=== PATIENT | female | born 1990 | race Caucasian/White ===

== ENCOUNTER 2023-04-01 06:43 | Inpatient (IN) | payer BC, SELFPAY ==
[2023-04-01 06:45] VITALS: BP 146/96; PULSE 81; RESP 16; TEMP 37; O2SAT 99; BMI 19.7
[2023-04-01 07:09] LABS: Basophils % 0.4 %; Eosinophils # 0.3 10^3/uL (0.0-0.8); Eosinophils % 2.8 %; Hematocrit 43.4 % (37.0-47.0); Hemoglobin 14.1 g/dL (11.5-15.3); Lymphocytes # 3.2 10^3/uL (0.8-4.8); Lymphocytes % 31.8 %; Mean Corpuscular HGB Conc 32.5 g/dL (30.0-36.0); Mean Corpuscular Hemoglobin 30.5 pg (28.0-34.0); Mean Corpuscular Volume 93.9 fl (81-99); Mean Platelet Volume 9.5 fL (7.4-10.4); Monocytes # 0.7 10^3/uL (0.2-0.9); Monocytes % 7.3 %; Neutrophils # 5.71 10^3/uL (1.8-7.7); Neutrophils % 57.5 %; Nucleated Red Blood Cells % 0 %; Platelet Count 268 10^3/cmm (130-400); Red Blood Count 4.62 10^6/uL (4.1-5.3); Red Cell Distribution Width 12.4 % (12.1-15.1); White Blood Count 9.9 10^3/uL (4.0-10.0)
[2023-04-01 07:27] LABS: HCG, Serum Qual Negative (Negative)
[2023-04-01 07:47] LABS: Alanine Aminotransferase 15 U/L (0-33); Albumin Level 4.7 g/dL (3.5-5.2); Alkaline Phosphatase 40 U/L (35-105); Anion Gap 14.1 (5-19); Aspartate Amino Transferase 18 U/L (0-32); Blood Urea Nitrogen 10 mg/dL (6-20); Calcium 9.3 mg/dL (8.5-10.5); Carbon Dioxide 26 mmol/L (22-29); Chloride 102 mmol/L (98-107); Globulin 2.4 g/dL (1.3-4.6); Glomerular Filtration Rate 71.3 mL/min (90-130); Glucose 110 mg/dL (65-115); Osmolality Calculated 286 mOsm/kg (285-295); Potassium 4.1 mmol/L (3.5-5.1); Sodium 138 mmol/L (136-145); Total Bilirubin 0.3 mg/dL (0.15-1.2); Total Protein 7.1 g/dL (6.6-8.7)
[2023-04-01 07:52] LABS: Acetaminophen < 5.0 ug/mL (10-30); Alcohol Level < 10 mg/dL (0-10); Salicylate < 0.3 mg/dL (3-10)
[2023-04-01 08:01] LABS: Amphetamines Screen Urine Negative (Negative); Barbiturates Screen Urine Negative (Negative); Benzodiazepines Screen Urine Negative (Negative); Cocaine Screen Urine Negative (Negative); Opiate Screen Urine Negative (Negative); PCP Screen Urine Negative (Negative); THC Screen Urine Positive (Negative)
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
--- NOTE | 2023-04-01 09:24 | PC.NURSE ---
96 hr patient rights discussed and educated with patient in presence of [facility] water resources technical officer Vidal @[phone]. No questions or needs at this time. Patient copy left at bedside
--- NOTE | 2023-04-01 09:26 | PC.NURSE ---
MANCERA found w/in belongings; Patient verbalized to charge nurse that she had a large amount of mancera within her possession and inside her personal belongings. Director Of Education And Training and dog license officer supervisor Vidal counted the mancera that was in patient belongings and verified the amount found with the patient. $630 USD and 340 pesos were found inside her purse tucked inside of her [place] passport. HS asked patient if there was any other mancera within her belongings. She stated no, and agreed to the amount that was found. HS explained that mancera would be locked up, and returned to her at the time of her discharge.
[2023-04-01] MEDS: diphenhydrAMINE 50 mg Capsule PO ×2 (11:19→17:00)
--- NOTE | 2023-04-01 12:34 | PC.NURSE ---
PT REQUESTS TO FILE A COMPLAINT AND SPEAK TO A SAND MILL OPERATOR DUE TO THE U LUNCH SCHEDULE BEING WRONG ON YOUR SCHEDULE. THIS RN REVIEWED THE SCHEDULE AND LUNCH IS SCHEDULED AT NOON, PT WAS INFORMED LUNCH GETS ON THE UNIT APPROXIMATELY 1230 TO 1300. THIS MADE THE PT EXTREMELY UPSET. THIS RN DID AGREE WITH THE PT THAT THE SCHEDULE WAS IN FACT WRONG AND THANKED HER FOR BRINGING IT TO OUT ATTENTION. 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 I NEED TO TALK TO SOMEONE WHO KNOW WHAT THEY ARE DOING PLEASE. MAYBE THIS CARY. THIS RN ATTEMPTED TO ANSWER QUESTIONS BUT PT WAS SO WORKED UP AND AGITATED SHE WOULD NOT LISTEN. PT WAS OFFERED MEDICATION OR A QUIET PLACE TO GO TALK INTO HER ROOM, PT REFUSED. PT STATES NO, IF THERE ARE NOT CAMERAS IN THE ROOM I AM NOT SPEAKING TO YOU. I NEED TO BE ON CAMERA BEFORE I SPEAK TO YOU. THIS RN SUGGESTED WE SPEAK AT THE NURSES STATION SINCE THERE IS A CAMERA OVER HEAD. PT THEN STATES WHAT HERE THERE IS NO PRIVACY, YOU JUST WANT ME TO TALK TO ME HERE SO I DON'T HAVE PRIVACY. IT WAS THEN SUGGESTED SHE PICK WHERE WE SPEAK AT. PT SUGGESTED WE GO INTO THE DAY AREA. THIS RN INFORMED THE PT THAT A GROUP WAS GOING ON AND IT PROBABLY WOULD NOT BE VERY PRIVATE. PT THEN POINTED TO THE SCHEDULE AND SAID SEE IT SAYS ON THE SCHEDULE THE GROUP IS AT 100 AND NOW ITS 1200 AND SHES IN THERE DOING GROUP. PT WAS INFORMED THAT THE ARCHERY INSTRUCTOR CAN DO GROUPS AT ANYTIME A PT SHOW INTEREST WEATHER IT IS SCHEDULED OR NOT. THIS AGAIN UPSET THE PT GREATLY AND SHE BEGAN SPEAKING IN A RAISED VOICE REQUESTED TO SPEAK TO THE HIGHEST PERSON AVAILABLE OVER YOU. PT WAS INFORMED THAT THE SUPERVISOR PIPE FINISHING WOULD BE NOTIFIED TO SPEAK TO HER. PT BEGAN YELLING AGAIN WHEN RN INFORMED THAT SINCE SHE WAS SO UPSET WE WOULD STOP SPEAKING UNTIL SHE COULD BE CALM. PT STATED FINE JUST TELL CARY, I'M SURE SHES ON LUNCH. THEN PT LAUGHED IN A SARCASTIC MANNER. THIS RN THEN WENT AND INFORMED THE SUPERVISOR PIPE FINISHING OF ALL THE ABOVE AND SUPERVISOR PIPE FINISHING WENT TO SPEAK WITH PT SHORTLY AFTER.
[2023-04-01 14:00] VITALS: BP 116/75; PULSE 79; RESP 18; TEMP 36.9; O2SAT 98
--- NOTE | 2023-04-01 14:19 | PC.NURSE ---
PT WAS MOVED TO 170 DUE TO BEING EXTREMELY AGITATED AND CONFRONTATIONAL TOWARDS STAFF WELL UPSETTING OTHER PTS. PT WAS INFORMED OF BEING MOVED AND EXPLAINED IN GREAT DETAIL WHY SHE WAS BEING MOVED. PT IS STILL EXTREMELY UPSET AND REFUSES TO LISTEN TO STAFF WHEN THEY ANSWER HER QUESTIONS. PT WAS MOVED TO 170 WITHOUT ANY ISSUES. PT DID SPEAK TO THE MACHINE III COREMAKER BUT IS STILL COMING TO THE NURSES STATION QUESTIONING EVERYTHING THAT IS DONE OR SAID. SUPPORT IS VOICED.
[2023-04-01 14:25] VITALS: PULSE 57
--- NOTE | 2023-04-01 14:25 | ECG_ITS ---
[facility] Test Date: 2023-04-01 Pat Name: Kimberly Gilbert Department: Room: 170 Gender: Female Certified Technician: : [id number] Requested By: Francis Larsen Order Number: [id number] Vince MD: Pasquale Ross M.D. Measurements Intervals [place] Rate: 57 P: 51 HI: 122 QRS: 79 QRSD: 86 T: 60 QT: 387 QTc: 377 Interpretive Statements SINUS BRADYCARDIA No previous ECG available for comparison Electronically Signed On 04-01-2023 14:45:42 CDT by Pasquale Ross M.D. [email or web address] [email or web address] central regional medical centerIronPlanetuniversity hospitals [facility].[id number]
--- NOTE | 2023-04-01 14:26 | PC.NURSE ---
Patient belittling staff and claiming that none of the staff know how to do their job and that all of the patients are being neglected. Patient stated to this nurse, why do you give this side good snacks and not the other side? Why aren't all patients being treated the same? This nurse assured her the staff was giving all patients fair treatment and appropriate snacks. She then demanded she see a medical doctor for her heart condition and said, since they didn't even address it in the ER. This RN told her the doctor would be made aware of her requests and patient became angry that a doctor was not going to see her at this very minute. Nursing staff voiced support and concern for the patient, but the patient was not responsive of this. She continued to berate staff.
--- NOTE | 2023-04-01 14:35 | PC.NURSE ---
Edda Rendon RN came to the unit to give patient her lab results per patient request.
--- NOTE | 2023-04-01 14:49 | PC.NURSE ---
Stat EKG ordered due to patient complaint of chest pain. Vitals were taken and were as follow: blood pressure- 116/75, pulse rate-79, respirations-18, o2-98, and temp of 98.5. Bedside, 12-lead EKG was administered shortly after to patient and no concerns were raised. Pulse rate was 57 and patient was deemed to be sinus bradycardia without any remarkable findings.
--- NOTE | 2023-04-01 15:01 | PC.NURSE ---
PTS MEDICATIONS WERE VERIFIED THROUGH 3 DIFFERENT PHARMACIES. THE FIRST PHARMACY IS [facility] IN [place], [place], PT HAS PICKED UP THE FOLLOWING MEDICATIONS IN THE LAST 30 DAYS AND HAS ACTIVE PRESCRIPTIONS FOR THE FOLLOWING: GABAPENTIN 300 MG PO BID, LORATADINE 10 MG PO DAILY, TRIAMCINOLONE 1% CREAM APPLY TO TRUNK AD BILATERAL EXTREMITIES BID PRN. PT ALSO HAD A PRESCRIPTION FOR GABAPENTIN 100 MG PO BID, WHEN THIS RN WENT TO EDUCATE PT ON ALL NEW ORDERS AND PRESCRIPTIONS PT STATED THAT THE 300 MG OF GABAPENTIN WAS TOO MUCH SINCE SHE IS NOT HOOKED TO CONTINUOS CARDIAC MONITORING. INFORMED PT I WOULD NOTIFY DR. HORTON TO SEE IF ORDER COULD BE CHANGED TO TO 100 MG. THE FOLLOWING MEDICATIONS WERE RECEIVED FROM [facility] IN [place], [place]: ATOMEXATINE 40 MG PO DAILY, LAMOTRIGINE 100 MG PO DAILY, SEROQUEL 25 MG PO AT BEDTIME, ALBUTEROL 90 MCGS 1 INHALATION Q 6 HOURS SOB. STILL WAITING FOR [facility] IN [place], [place] TO FAX MEDICATIONS. NEW ORDERS WERE RECEIVED TO START THE ABOVE HOME MEDICATIONS.
--- NOTE | 2023-04-01 15:24 | PC.NURSE ---
GABAPENTIN 300 MG DISCONTINUED AND STARTED GABAPENTIN [address] PO [address]ID PER [address] HORTON. PT EDUCATION COMPLETED ON ALL HOME MEDICATION BEING RESTARTED WITH THE EXCEPTION OF BENADRYL DUE TO IT BEING DUPLICATE THERAPY. PT IS RESTING IN BED AND MORE COOPERATIVE THAN SHE HAS BEEN ALL DAY. ALL QUESTIONS WERE ANSWERED AND SUPPORT WAS VOICED. PT THEN ROLLED OVER AND BEGAN TO REST AGAIN. CALM AND COOPERATIVE. PT STATES THE NURSE GAVE HER SOME BENADRYL AND IT HAS BEEN EFFECTIVE IN CALMING HER.
[2023-04-01] MEDS: famotidine 20 mg Tablet PO (16:24)
[2023-04-01] MEDS: gabapentin 100 mg Capsule PO (16:24)
--- NOTE | 2023-04-01 16:31 | PC.NURSE ---
Patient at nurses station, agitated. Patient complaining about how her clothes fit. Patient complaining about her shower door not having a lock. Patient upset that the doctor is not here. Patient says she won't take anything to calm down because she does not want to calm down. Patient yelled this last sentence. Patient states that she wants to talk to a marketing information analyst.
--- NOTE | 2023-04-01 16:57 | PC.NURSE ---
Patient banging on hankins in patient bathroom. Patient verbally aggressive. Patient screaming at staff. Administered oral B52 with Security present. Will continue to monitor patient closely
[2023-04-01] MEDS: LORazepam 2 mg Tablet PO (17:00)
[2023-04-01] MEDS: haloperidol 5 mg Tablet PO (17:00)
--- NOTE | 2023-04-01 17:02 | PC.NURSE ---
Patient banging on hankins in bathroom and threw all hygiene supplies, because she was angry, in the floor while taking a shower. Staff attempted to deescalate patient verbally but were unsuccessful. This RN asked if she would like new hygiene supplies to which she replied, who the fuck am I even talking to, as she in the bathroom with the door closed. When this RN told her she stated, I wish I never fucking met you guys. Nobody knows what the fuck they're doing. Patient was then offered something PO for agitation, but she refused and stated she didn't want to calm down. This RN and a member of security attempted to get patient to comply and take medications, but she continued to refuse. Once nurses had drawn up haldol, benadryl, and ativan in syringes to administer to the patient, she began to cry and asked if she could take them in pill form. The patient was then administered ativan 2mg po, haldol 5mg po, and benadryl 50mg po. Patient currently calm and resting in her room.
[2023-04-01] MEDS: quetiapine 25 mg Tablet PO (21:05)
[2023-04-01 21:37] VITALS: BP 110/66; PULSE 89; RESP 17; O2SAT 98
[2023-04-02 06:00] VITALS: RESP 15
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
[2023-04-02] MEDS: lamoTRIgine 100 mg Tablet PO (09:31)
[2023-04-02] MEDS: gabapentin 100 mg Capsule PO ×2 (09:31→17:25)
[2023-04-02] MEDS: atomoxetine 40 mg Capsule PO (09:31)
[2023-04-02] MEDS: loratadine 10 mg Tablet PO (09:32)
[2023-04-02] MEDS: famotidine 20 mg Tablet PO ×2 (09:32→17:25)
[2023-04-02] MEDS: benztropine 1 mg Tablet PO (09:32)
[2023-04-02 14:00] VITALS: BP 103/69; PULSE 102; RESP 16; TEMP 36.6; O2SAT 99
[2023-04-02 20:17] VITALS: BP 118/76; PULSE 66; RESP 18; TEMP 36.5; O2SAT 99
[2023-04-02] MEDS: quetiapine 25 mg Tablet PO (20:38)
[2023-04-03 06:00] VITALS: BP 108/73; PULSE 77; RESP 16; TEMP 36.9; O2SAT 98
[2023-04-03] MEDS: famotidine 20 mg Tablet PO ×2 (08:41→17:43)
[2023-04-03] MEDS: loratadine 10 mg Tablet PO (08:41)
[2023-04-03] MEDS: gabapentin 100 mg Capsule PO ×2 (08:41→17:43)
[2023-04-03] MEDS: lamoTRIgine 100 mg Tablet PO (08:41)
[2023-04-03] MEDS: atomoxetine 40 mg Capsule PO (08:41)
[2023-04-03] MEDS: polyethylene glycol 3350 Pkt 17 gm PO (10:04)
[2023-04-03 14:00] VITALS: BP 118/53; PULSE 71; RESP 16; TEMP 36.8; O2SAT 99
[2023-04-03] MEDS: zinc oxide oint 30 gm 1 APPLIC TOPICAL (16:56)
[2023-04-03] MEDS: diphenhydrAMINE 50 mg Capsule PO (17:47)
--- NOTE | 2023-04-03 18:12 | W.PM.NPUPNS ---
Subjective NPU Subjective: Patient presented today reporting that she is feeling a little better but struggling with being here. She talks a lot about her children and not being with them. We talked a lot about the need for her to take this time to care for herself and get psychological stability. She talked a lot about trauma and not being able to relax. We talked about collateral information being very suggestive of this representing psychosis and the need for medications to help thwart that thinking. We discussed the risks, benefits and alternatives of starting Invega and she understood and agreed to proceed as is documented in this note. Mental Status Exam MSE Comments: This is an underweight white female, in hospital scrubs, with appropriate grooming and eye contact. No abnormal movements except for mild psychomotor retardation. Cooperative with exam in mild distress. Speech was normal rate and volume. Mood described as is really hard to be here I feel trapped or caged; affect congruent, labile at times but much more calm but the first day. Thought process, organized. Thought content: patient denied any suicidal or homicidal ideation, there were no delusions reported but concerns for paranoia, hyperreligious or persecutory noted, patient denied any auditory or visual hallucinations. Attention, concentration, and memory appeared intact, but none were formally tested. Alert and oriented times three. Insight and judgment are limited. Impulse control is limited. Vitals/I&O/Wt Last Vital Signs Temp 98.5 F 04/03/23 21:58 Pulse 73 04/03/23 21:58 Resp 18 04/03/23 21:58 BP 135/82 04/03/23 21:58 Pulse Ox 99 04/03/23 21:58 O2 Del Method Room Air 04/03/23 21:58 Data NPU 04/01/23 07:00 04/01/23 07:00 A&P Assessment and plan (1) Psychosis: Plan This is a 33 -year-old, white female, history of mental health issues that she is somewhat guarded in revealing who presents after being placed on a 96-hour hold secondary to concerns for paranoia, psychosis and/or alexy. 1.? Continue current medication. Start Invega 3 mg p.o. daily today with a likely plan to switch to 6 mg tomorrow. 2.? Encourage individual, group, and milieu therapy. 3.? Continue q-15-minute checks for safety. 4.? Recommend sober living treatment at the highest level of care to which the patient is willing to commit. 5. Get collateral information given her subtlety and her psychosis as well as concerns she is avoiding being totally honest secondary to insight into the implication of her reports of the world ending etc. some collateral information obtained suggestive of clear demarcation suggestive of psychotic break in the last month. Involuntary Hold Information 96 Hour Hold: 96 Hour Involuntary Admission: Yes 96 Hour Hold Ending Date: 04/07/23 96 Hour Hold Ending Time: 08:15 Attestations NPU Medical Necessity Statement*: Inpatient hospitalization is medically necessary and the clinically appropriate intervention, at this time. We will monitor medications and make changes as indicated. Likely length of stay is three to five days. Coding Level of Care Code Acute Code for [place] Fwd Diagnoses Psychosis F29
[2023-04-03] MEDS: paliperidone ER 3 mg Tablet PO (19:58)
[2023-04-03 21:58] VITALS: BP 135/82; PULSE 73; RESP 18; TEMP 36.9; O2SAT 99
--- NOTE | 2023-04-04 02:21 | PC.NURSE ---
Pt 2100 seroquel wasted. Pt refused to take it when given to her and stated I dont want to go to sleep right now, I will come back up later when I feel like taking it. Pt was later asked again around two hours later if she wanted to take it and pt stated Why would I take it now? .
[2023-04-04 06:00] VITALS: BP 102/67; PULSE 70; RESP 16; O2SAT 98
[2023-04-04] MEDS: lamoTRIgine 100 mg Tablet PO (09:08)
[2023-04-04] MEDS: paliperidone ER 3 mg Tablet PO (09:08)
[2023-04-04] MEDS: loratadine 10 mg Tablet PO (09:08)
[2023-04-04] MEDS: gabapentin 100 mg Capsule PO ×2 (09:08→17:31)
[2023-04-04] MEDS: atomoxetine 40 mg Capsule PO (09:08)
[2023-04-04] MEDS: famotidine 20 mg Tablet PO ×2 (09:08→17:31)
--- NOTE | 2023-04-04 11:47 | P.NPUPN_ITS ---
Subjective NPU Subjective: Patient presented today reporting that she is feeling okay. She is still fairly resistant to talking about some of the thoughts that she has including the end of the world and different things about people with recessive genes. She spent much of the interview thought about how the blue-eyed people around people on the inpatient unit had these differences and sometimes feeling to be more s cheming against her. Otherwise she was less agitated or irritable than when she first presented and seem to adjusting to being here though she isbe still resistant to the idea that she is having challenges at the level that she is having them. Mental Status Exam MSE Comments: This is an underweight white female, in hospital scrubs, with appropriate grooming and eye contact. No abnormal movements except for mild psychomotor retardation. Cooperative with exam in mild distress. Speech was normal rate and volume. Mood described as is really hard to be here I feel trapped or caged; affect congruent, labile at times but much more calm but the first day. Thought process, organized. Thought content: patient denied any suicidal or homicidal ideation, there were no delusions reported but concerns for paranoia, hyperreligious or persecutory noted, patient denied any auditory or visual hallucinations. Attention, concentration, and memory appeared intact, but none were formally tested. Alert and oriented times three. Insight and judgment are limited. Impulse control is limited. Vitals/I&O/Wt Last Vital Signs Temp 98.5 F 04/03/23 21:58 Pulse 70 04/04/23 06:00 Resp 16 04/04/23 06:00 BP 102/67 04/04/23 06:00 Pulse Ox 98 04/04/23 06:00 O2 Del Method Room Air 04/04/23 06:00 Data NPU 04/01/23 07:00 04/01/23 07:00 A&P Assessment and plan (1) Psychosis: Plan This is a 33 -year-old, white female, history of mental health issues that she is somewhat guarded in revealing who presents after being placed on a 96-hour hold secondary to concerns for paranoia, psychosis and/or alexy. 1.? Continue current medication. Started Invega 3 mg p.o. daily today with a likely plan to switch to 6 mg. 2.? Encourage individual, group, and milieu therapy. 3.? Continue q-15-minute checks for safety. 4.? Recommend sober living treatment at the highest level of care to which the patient is willing to commit. 5. Get collateral information given her subtlety and her psychosis as well as concerns she is avoiding being totally honest secondary to insight into the implication of her reports of the world ending etc. some collateral information obtained suggestive of clear demarcation suggestive of psychotic break in the last month. Involuntary Hold Information 96 Hour Hold: 96 Hour Involuntary Admission: Yes 96 Hour Hold Ending Date: 04/07/23 96 Hour Hold Ending Time: 08:15 Attestations NPU Medical Necessity Statement*: Inpatient hospitalization is medically necessary and the clinically appropriate intervention, at this time. We will monitor medications and make changes as indicated. Likely length of stay is three to five days. Coding Level of Care Code Acute Code for Chg Fwd Diagnoses Psychosis F29
[2023-04-04 14:00] VITALS: BP 128/74; PULSE 84; RESP 16; TEMP 36.6; O2SAT 99
[2023-04-04] MEDS: docusate sodium 100 mg Capsule PO (16:45)
[2023-04-04] MEDS: diphenhydrAMINE 50 mg Capsule PO (18:30)
[2023-04-04] MEDS: quetiapine 25 mg Tablet PO (21:25)
[2023-04-04 21:43] VITALS: BP 109/62; PULSE 79; RESP 18; TEMP 37; O2SAT 97
[2023-04-05 06:00] VITALS: RESP 16
[2023-04-05] MEDS: lamoTRIgine 100 mg Tablet PO (09:41)
[2023-04-05] MEDS: atomoxetine 40 mg Capsule PO (09:41)
[2023-04-05] MEDS: gabapentin 100 mg Capsule PO ×2 (09:41→17:26)
[2023-04-05] MEDS: loratadine 10 mg Tablet PO (09:41)
[2023-04-05] MEDS: paliperidone ER 3 mg Tablet PO (09:42)
[2023-04-05] MEDS: famotidine 20 mg Tablet PO ×2 (09:42→17:26)
[2023-04-05 14:00] VITALS: BP 128/79; PULSE 96; RESP 17; TEMP 36.6; O2SAT 98
[2023-04-05] MEDS: polyethylene glycol 3350 Pkt 17 gm PO (15:05)
--- NOTE | 2023-04-05 18:56 | P.NPUPN_ITS ---
Subjective NPU Subjective: Patient presented today reporting that she is doing fine. She continues to complain/does not want to be in the hospital and is hopeful for discharge soon and does not feel that she is having significant psychosis. Family and friends have expressed significant concerns and she reports that her aunt who she was going to see is coming tomorrow which might be a helpful source of data. She childers s some sadness about school starting tomorrow and her not being there for her children but she reports that she is making it. Mental Status Exam 2 MSE Comments: This is an underweight white female, in hospital scrubs, with appropriate grooming and eye contact. No abnormal movements. Cooperative with exam in mild distress. Speech was normal rate and volume. Mood described as is really hard to be here I feel trapped or caged; affect congruent. Thought process, organized. Thought content: patient denied any suicidal or homicidal ideation, there were no delusions reported but concerns for paranoia, hyperreligious or persecutory delusions noted, patient denied any auditory or visual hallucinations. Attention and concentration appeared intact, and memory appeared mostly reliable concerns about delusions impacting her reporting, but none were formally tested. Alert and oriented times three. Insight and judgment are limited. Impulse control is limited. Vitals/I&O/Wt Last Vital Signs Temp 98.7 F 04/05/23 20:47 Pulse 84 04/05/23 20:47 Resp 18 04/05/23 20:47 BP 108/66 04/05/23 20:47 Pulse Ox 97 04/05/23 20:47 O2 Del Method Room Air 04/05/23 20:47 Weight last 48 hrs Weight 52.617 kg Data NPU 04/01/23 07:00 04/01/23 07:00 A&P Assessment and plan (1) Psychosis: Plan This is a 33 -year-old, white female, history of mental health issues that she is somewhat guarded in revealing who presents after being placed on a 96-hour hold secondary to concerns for paranoia, psychosis and/or alexy. 1.? Continue current medication. Started Invega 3 mg p.o. daily today with a likely plan to switch to 6 mg. 2.? Encourage individual, group, and milieu therapy. 3.? Continue q-15-minute checks for safety. 4.? Recommend sober living treatment at the highest level of care to which the patient is willing to commit. 5. Get collateral information given her subtlety and her psychosis as well as concerns she is avoiding being totally honest secondary to insight into the implication of her reports of the world ending etc. some collateral information obtained suggestive of clear demarcation suggestive of psychotic break in the last month. 6. Need to determine whether we will file for 21-day hold. Involuntary Hold Information 96 Hour Hold: 96 Hour Involuntary Admission: Yes 96 Hour Hold Ending Date: 04/07/23 96 Hour Hold Ending Time: 08:15 Attestations NPU Medical Necessity Statement*: Inpatient hospitalization is medically necessary and the clinically appropriate intervention, at this time. We will monitor medications and make changes as ind icated. Likely length of stay is three to five days. Coding Level of Care Code Acute Code for Chg Fwd Diagnoses Psychosis F29
[2023-04-05] MEDS: quetiapine 25 mg Tablet PO (20:31)
[2023-04-05 20:47] VITALS: BP 108/66; PULSE 84; RESP 18; TEMP 37.1; O2SAT 97
[2023-04-05] MEDS: docusate sodium 100 mg Capsule PO (20:51)
[2023-04-05] MEDS: diphenhydrAMINE 50 mg Capsule PO (21:48)
[2023-04-06] MEDS: loratadine 10 mg Tablet PO (08:40)
[2023-04-06] MEDS: lamoTRIgine 100 mg Tablet PO (08:40)
[2023-04-06] MEDS: famotidine 20 mg Tablet PO ×2 (08:40→18:29)
[2023-04-06] MEDS: gabapentin 100 mg Capsule PO ×2 (08:40→18:29)
[2023-04-06] MEDS: atomoxetine 40 mg Capsule PO (08:40)
[2023-04-06] MEDS: paliperidone ER 6 mg Tablet PO (08:42)
[2023-04-06] MEDS: polyethylene glycol 3350 Pkt 17 gm PO (12:55)
[2023-04-06 14:00] VITALS: BP 108/72; PULSE 96; RESP 17; TEMP 36.8; O2SAT 98
--- NOTE | 2023-04-06 16:51 | W.PM.NPUPNS ---
Subjective NPU Subjective: Patient presented today reporting that she is doing fine and is really focused on her medical concerns and almost obsessive compulsive fashion. Family meeting was fairly adversarial with her more or less same she was getting help here and that she should just be transferred and trying to look at technicalities they can lead to her discharge. She was very limited in her insight somewhat but ultimately acknowledged that she had not under selling the level of delusions that she has. She reported being agreeable to staying at least 5 more days. We were negotiating whether we would still move forward with a hearing. Mental Status Exam MSE Comments: This is an underweight white female, in hospital scrubs, with appropriate grooming and eye contact. No abnormal movements. Cooperative with exam in mild to extreme distress. Speech was normal rate and volume. Mood described as is really hard to be here I feel trapped or caged; affect congruent. Thought process, organized. Thought content: patient denied any suicidal or homicidal ideation, there were no delusions reported but concerns for paranoia, hyperreligious or persecutory delusions noted, patient denied any auditory or visual hallucinations. Attention and concentration appeared intact, and memory appeared mostly reliable concerns about delusions impacting her reporting, but none were formally tested. Alert and oriented times three. Insight and judgment are limited. Impulse control is limited. Vitals/I&O/Wt Last Vital Signs Temp 98.7 F 04/05/23 20:47 Pulse 84 04/05/23 20:47 Resp 18 04/05/23 20:47 BP 108/66 04/05/23 20:47 Pulse Ox 97 04/05/23 20:47 O2 Del Method Room Air 04/05/23 20:47 Weight last 48 hrs Weight 52.617 kg Data NPU 04/01/23 07:00 04/01/23 07:00 A&P Assessment and plan (1) Psychosis: Plan This is a 33 -year-old, white female, history of mental health issues that she is somewhat guarded in revealing who presents after being placed on a 96-hour hold secondary to concerns for paranoia, psychosis and/or alexy. 1.? Continue current medication. Started Invega 3 mg p.o. daily today with a likely plan to switch to 6 mg. 2.? Encourage individual, group, and milieu therapy. 3.? Continue q-15-minute checks for safety. 4.? Recommend sober living treatment at the highest level of care to which the patient is willing to commit. 5. Get collateral information given her subtlety and her psychosis as well as concerns she is avoiding being totally honest secondary to insight into the implication of her reports of the world ending etc. some collateral information obtained suggestive of clear demarcation suggestive of psychotic break in the last month. Had family meeting with aunt who was supportive of our position that she needed more time patient initially lobby for discharge and was quite resistant. Eventually in the conversation afterwards she was able to collaborate with this commercial insurance underwriter on a plan for a longer stay with the goal of avoiding her missing an appointment on 04/14/2023. 6. File for 21-day hold. Involuntary Hold Information 96 Hour Hold: 96 Hour Involuntary Admission: Yes 96 Hour Hold Ending Date: 04/07/23 96 Hour Hold Ending Time: 08:15 Attestations NPU Medical Necessity Statement*: Inpatient hospitalization is medically necessary and the clinically appropriate intervention, at this time. We will monitor medications and make changes as indicated. Likely length of stay is three to five days. Coding Level of Care Code Acute Code for Chg Fwd Diagnoses Psychosis F29
[2023-04-06 20:17] VITALS: BP 135/83; PULSE 82; RESP 18; TEMP 37.2; O2SAT 97
[2023-04-06] MEDS: quetiapine 25 mg Tablet PO (20:17)
[2023-04-06 20:18] VITALS: BP 112/77
[2023-04-06] MEDS: docusate sodium 100 mg Capsule PO (20:44)
[2023-04-07 05:46] VITALS: BP 108/65; PULSE 68; RESP 18; O2SAT 98
[2023-04-07] MEDS: paliperidone ER 6 mg Tablet PO (09:50)
[2023-04-07] MEDS: loratadine 10 mg Tablet PO (09:51)
[2023-04-07] MEDS: atomoxetine 40 mg Capsule PO (09:51)
[2023-04-07] MEDS: lamoTRIgine 100 mg Tablet PO (09:51)
[2023-04-07] MEDS: gabapentin 100 mg Capsule PO ×2 (09:51→17:38)
[2023-04-07] MEDS: famotidine 20 mg Tablet PO ×2 (09:51→17:38)
[2023-04-07 14:00] VITALS: BP 153/101; PULSE 78; RESP 18; TEMP 36.6; O2SAT 98
[2023-04-07] MEDS: docusate sodium 100 mg Capsule PO (14:44)
[2023-04-07] MEDS: tamsulosin 0.4 mg Capsule PO (17:38)
[2023-04-07 18:13] LABS: Add Urine Microscopic? NO; Charge for UA Resulting for Rev
--- NOTE | 2023-04-07 18:16 | P.NPUPN_ITS ---
Subjective NPU Subjective: Patient presents today continuing to have slow improvement. Today she was able to acknowledge that much of the conversation we have had including thoughts about her brother going to [place], funguses taking over the world are fixated in delusions that she has an represent psychosis and we continue to argue for her to embrace additional days. She has been recently challenged by significant s omatic focus about medical conditions she believes she has including cardiac, thought she had about being , kidney issue, skin issues, EDS etc. Mental Status Exam MSE Comments: This is an underweight white female, in hospital scrubs, with appropriate grooming and eye contact. No abnormal movements. Cooperative with exam in mild to extreme distress. Speech was normal rate and volume. Mood described as is really hard to be here I feel trapped or caged; affect congruent. Thought process, organized. Thought content: patient denied any suicidal or homicidal ideation, she is finally acknowledging some of the delusions he has reported and continued paranoia, hyperreligious or persecutory delusions noted, patient denied any auditory or visual hallucinations. Attention and concentration appear ed intact, and memory appeared mostly reliable concerns about delusions impacting her reporting, but none were formally tested. Alert and oriented times three. Insight and judgment are limited versus impaired. Impulse control is limited versus impaired. Vitals/I&O/Wt Last Vital Signs Temp 97.8 F 04/07/23 14:00 Pulse 85 04/07/23 22:00 Resp 18 04/07/23 22:00 BP 125/77 04/07/23 22:00 Pulse Ox 97 04/07/23 22:00 O2 Del Method Room Air 04/07/23 22:00 Data NPU 04/07/23 20:03 04/07/23 20:03 A&P Assessment and plan (1) Psychosis: Plan This is a 33 -year-old, white female, history of mental health issues that she is somewhat guarded in revealing who presents after being placed on a 96-hour hold secondary to concerns for paranoia, psychosis and/or alexy. 1.? Continue current medication. Started Invega 3 mg p.o. daily. Increased to 04/06/2023 6 mg. 2.? Encourage individual, group, and milieu therapy. 3.? Continue q-15-minute checks for safety. 4.? Recommend sober living treatment at the highest level of care to which the patient is willing to commit. 5. Get collateral information given her subtlety and her psychosis as well as concerns she is avoiding being totally honest secondary to insight into the implication of her reports of the world ending etc. some collateral information obtained suggestive of clear demarcation suggestive of psychotic break in the last month. Had family meeting with aunt who was supportive of our position that she needed more time patient initially lobby for discharge and was quite resistant. Eventually in the conversation afterwards she was able to collaborate with this writer technical publications on a plan for a longer stay with the goal of avoiding her missing an appointment on 04/14/2023. 6. Filed for 21-day hold. Hearing tomorrow 04/08/2023. Involuntary Hold Information 96 Hour Hold: 96 Hour Involuntary Admission: Yes 96 Hour Hold Ending Date: 04/07/23 96 Hour Hold Ending Time: 08:15 Attestations NPU Medical Necessity Statement*: Inpatient hospitalization is medically necessary and the clinically appropriate intervention, at this time. We will monitor medications and make changes as indicated. Likely length of stay is three to five days. Coding Level of Care Code Acute Code for Chg Fwd Diagnoses Psychosis F29
[2023-04-07 18:20] LABS: Bilirubin Urine Neg (Negative); Blood Urine Neg (Negative); Glucose Urine UA Norm (Normal); Ketones Urine Negative (Negative); Leukocyte Esterase Urine Negative (Negative); Nitrate Urine Negative (Negative); Protein Urine Neg (Negative); Specific Gravity, Urine 1.005 (1.005-1.030); Urine Appearance Clear (CLEAR); Urine Color Yellow (Yellow); Urobilinogen Urine Norm (Negative); pH Urine 7 (5-7)
--- NOTE | 2023-04-07 19:09 | PC.NURSE ---
Performed bladder scan 367ml residual.
[2023-04-07 20:28] LABS: Basophils % 0.4 %; Eosinophils # 0.3 10^3/uL (0.0-0.8); Eosinophils % 3.2 %; Hematocrit 39.5 % (36-47); Lymphocytes # 3.8 10^3/uL (0.8-4.8); Lymphocytes % 38.7 %; Mean Corpuscular HGB Conc 33.2 g/dL (30-55); Mean Corpuscular Hemoglobin 30.4 pg (27-33); Mean Corpuscular Volume 91.6 fl (85-98); Mean Platelet Volume 9.9 fL (7.4-10.4); Monocytes # 0.7 10^3/uL (0.2-0.9); Neutrophils # 4.88 10^3/uL (1.8-7.7); Neutrophils % 50.5 %; Nucleated Red Blood Cells % 0 %; Platelet Count 210 10^3/cmm (157-399); Red Blood Count 4.31 10^6/uL (3.85-5.65); Red Cell Distribution Width 12.6 % (12.1-15.1); White Blood Count 9.68 10^3/uL (3.29-11.43)
[2023-04-07 20:54] LABS: Alanine Aminotransferase 17 U/L (0-33); Albumin Level 4.5 g/dL (3.5-5.2); Alkaline Phosphatase 54 U/L (35-105); Anion Gap 11.3 (5-19); Aspartate Amino Transferase 16 U/L (0-32); Blood Urea Nitrogen 19 mg/dL (6-20); Calcium 9.4 mg/dL (8.5-10.5); Carbon Dioxide 29 mmol/L (22-29); Chloride 103 mmol/L (98-107); Globulin 2.3 g/dL (1.3-4.6); Glomerular Filtration Rate 81.6 mL/min (90-130); Glucose 93 mg/dL (65-115); Osmolality Calculated 290 mOsm/kg (285-295); Potassium 4.3 mmol/L (3.5-5.1); Sodium 139 mmol/L (136-145); Total Bilirubin 0.2 mg/dL (0.15-1.2); Total Protein 6.8 g/dL (6.6-8.7)
[2023-04-07] MEDS: quetiapine 25 mg Tablet PO (21:06)
[2023-04-07 22:00] VITALS: BP 125/77; PULSE 85; RESP 18; O2SAT 97
[2023-04-08 06:00] VITALS: BP 110/75; PULSE 101; RESP 18; O2SAT 99
[2023-04-08] MEDS: paliperidone ER 6 mg Tablet PO (09:38)
[2023-04-08] MEDS: loratadine 10 mg Tablet PO (09:38)
[2023-04-08] MEDS: famotidine 20 mg Tablet PO ×2 (09:38→17:13)
[2023-04-08] MEDS: gabapentin 100 mg Capsule PO ×2 (09:38→17:13)
[2023-04-08] MEDS: atomoxetine 40 mg Capsule PO (09:38)
[2023-04-08] MEDS: lamoTRIgine 100 mg Tablet PO (09:38)
--- NOTE | 2023-04-08 13:53 | P.NPUPN_ITS ---
Subjective NPU Subjective: Patient presented today reporting she feels she is ready to leave. We discussed that it was only yesterday that she was able to even acknowledge some of her delusional content. She had a very intellectualized concept of her situation and would not look at the red flags about her being weeks into this episode and only being days with improvement. She was unable to look at the challenges she has created including her having supervised visits with her children and having significant custody restrictions. She continues to be consumed by thoughts of her possible illnesses of being very somatically preoccupied. I discussed the plan to go to the court house and request up to 21 days additional. Mental Status Exam MSE Comments: This is an underweight white female, in hospital scrubs, with appropriate grooming and eye contact. No abnormal movements. Cooperative with exam in mild to extreme distress. Speech was normal rate and volume. Mood described as is really hard to be here I feel trapped or caged; affect congruent. Thought process, organized. Thought content: patient denied any suicidal or homicidal ideation, she is finally acknowledging some of the delusions he has reported and continued paranoia, hyperreligious or persecutory delusions noted, patient denied any auditory or visual hallucinations. Attention and concentration appeared intact, and memory appeared mostly reliable concerns about delusions impacting her reporting, but none were formally tested. Alert and oriented times three. Insight and judgment are limited versus impaired. Impulse control is limited versus impaired. Vitals/I&O/Wt Last Vital Signs Temp 99.3 F 04/08/23 14:00 Pulse 87 04/08/23 20:40 Resp 18 04/08/23 20:40 BP 134/79 04/08/23 20:40 Pulse Ox 98 04/08/23 20:40 O2 Del Method Room Air 04/08/23 20:40 Data NPU 04/07/23 20:03 04/07/23 20:03 A&P Assessment and plan (1) Psychosis: Plan This is a 33 -year-old, white female, history of mental health issues that she is somewhat guarded in revealing who presents after being placed on a 96-hour hold secondary to concerns for paranoia, psychosis and/or alexy. 1.? Continue current medication. Started Invega 3 mg p.o. daily. Increased to 04/06/2023 6 mg. We will consider long-acting injectable. 2.? Encourage individual, group, and milieu therapy. 3.? Continue q-15-minute checks for safety. 4.? Recommend sober living treatment at the highest level of care to which the patient is willing to commit. 5. Get collateral information given her subtlety and her psychosis as well as concerns she is avoiding being totally honest secondary to insight into the implication of her reports of the world ending etc. some collateral information obtained suggestive of clear demarcation suggestive of psychotic break in the last month. Had family meeting with aunt who was supportive of our position that she needed more time patient initially lobby for discharge and was quite resistant. Eventually in the conversation afterwards she was able to collaborate with this telegraphic typewriter installer on a plan for a longer stay with the goal of a voiding her missing an appointment on 04/14/2023. She went back on this conversation and endorsed a plan to fight with everything she has to get out of the hospital today even though we discussed believing that she was not ready. 6. Filed for 21-day hold. Hearing today 04/08/2023. Involuntary Hold Information 96 Hour Hold: 96 Hour Involuntary Admission: Yes 96 Hour Hold Ending Date: 04/07/23 96 Hour Hold Ending Time: 08:15 Attestations NPU Medical Necessity Statement*: Inpatient hospitalization is medically necessary and the clinically appropriate intervention, at this time. We will monitor medications and make changes as indicated. Likely length of stay is three to five days. Coding Level of Care Code Acute Code for Chg Fwd Diagnoses Psychosis F29
[2023-04-08 14:00] VITALS: BP 127/81; PULSE 97; RESP 16; TEMP 37.4; O2SAT 99
--- NOTE | 2023-04-08 14:07 | PC.NURSE ---
pt taken to court at 1400 by law enforcement.
--- NOTE | 2023-04-08 15:23 | PC.NURSE ---
pt back on floor after court.
[2023-04-08] MEDS: docusate sodium 100 mg Capsule PO (17:49)
[2023-04-08 20:40] VITALS: BP 134/79; PULSE 87; RESP 18; O2SAT 98
[2023-04-08] MEDS: quetiapine 25 mg Tablet PO (21:04)
[2023-04-09 06:00] VITALS: BP 132/86; PULSE 81; TEMP 36.8; O2SAT 99
[2023-04-09 07:30] LABS: Glucose Point of Care 107 mg/dL (70-110)
--- NOTE | 2023-04-09 08:07 | PC.NURSE ---
During morning assessment, patient denied depression, anxiety, thoughts of SI, HI, and AVH. Patient denied any issues with fellow patients. Patient is cooperative, but demanding.
[2023-04-09] MEDS: polyethylene glycol 3350 Pkt 17 gm PO (08:18)
[2023-04-09] MEDS: lamoTRIgine 100 mg Tablet PO (08:44)
[2023-04-09] MEDS: paliperidone ER 6 mg Tablet PO (08:44)
[2023-04-09] MEDS: famotidine 20 mg Tablet PO ×2 (08:44→17:02)
[2023-04-09] MEDS: loratadine 10 mg Tablet PO (08:44)
[2023-04-09] MEDS: atomoxetine 40 mg Capsule PO (08:44)
[2023-04-09] MEDS: gabapentin 100 mg Capsule PO ×2 (08:44→17:02)
[2023-04-09 14:00] VITALS: BP 113/69; PULSE 109; RESP 18; TEMP 36.8; O2SAT 98
[2023-04-09] MEDS: docusate sodium 100 mg Capsule PO (15:51)
--- NOTE | 2023-04-09 19:43 | P.NPUPN_ITS ---
Subjective NPU Subjective: Patient presented today reporting that she is doing okay. She initially was expressing being upset that this television script writer is back to a conversation about taking this today at a time. We discussed that the arrangement for possible tentative scheduled release on 04/14/2023 was mostly predicated on her demonstrating insight to acquiesce to staying. And her performance in the court room yesterday was quite clear that her insight is limited and she still poses a danger to herself and not moving forward with treatment as scheduled. We discussed her continued hyperfocus on medical [employer] instead of the clear danger that her mental health poses to her desired future life including relationship w ith her children etc. We had a discussion about the possibility of the long- acting injectable and the likelihood that discharge only, after Dr. Wang returns and in essence renders a second opinion. Mental Status Exam MSE Comments: This is an underweight white female, in hospital scrubs, with appropriate grooming and eye contact. No abnormal movements. Cooperative with exam in mild to extreme distress. Speech was normal rate and volume. Mood described as is really hard to be here I feel trapped or caged; affect congruent. Thought process, organized. Thought content: patient denied any suicidal or homicidal ideation, she is finally acknowledging some of the delusions he has reported and continued paranoia, hyperreligious or persecutory delusions noted, patient denied any auditory or visual hallucinations. Attention and concentration appeared intact, and memory appeared mostly reliable concerns about delusions impacting her reporting, but none were formally tested. Alert and oriented times three. Insight and judgment are limited versus impaired. Impulse control is limited versus impaired. Vitals/I&O/Wt Last Vital Signs Temp 98.1 F 04/09/23 20:19 Pulse 82 04/09/23 20:19 Resp 18 04/09/23 20:19 BP 123/81 04/09/23 20:19 Pulse Ox 97 04/09/23 20:19 O2 Del Method Room Air 04/09/23 20:47 04/09/23 04/09/23 04/10/23 14:59 22:59 06:59 Intake Total 960 / 960 Balance 960 / 960 Data NPU 04/07/23 20:03 04/07/23 20:03 A&P Assessment and plan (1) Psychosis: Plan This is a 33 -year-old, white female, history of mental health issues that she is somewhat guarded in revealing who presents after being placed on a 96-hour hold secondary to concerns for paranoia, psychosis and/or alexy. 1.? Continue current medication. Started Invega 3 mg p.o. daily. Increased to 04/06/2023 6 mg. We will consider long-acting injectable. 2.? Encourage individual, group, and milieu therapy. 3.? Continue q-15-minute checks for safety. 4.? Recommend sober living treatment at the highest level of care to which the patient is willing to commit. 5. Get collateral information given her subtlety and her psychosis as well as concerns she is avoiding being totally honest secondary to insight into the implication of her reports of the world ending etc. some collateral information obtained suggestive of clear demarcation suggestive of psychotic break in the last month. Had family meeting with aunt who was supportive of our position that she needed more time patient initially lobby for discharge and was quite resistant. Eventually in the conversation afterwards she was able to collaborate with this television script writer on a plan for a longer stay with the goal of avoiding her missing an appointment on 04/14/2023. She went back on this conversation and endorsed a plan to fight with everything she has to get out of the hospital today even though we discussed believing that she was not ready. Continued information about the significant psychosis and disorganization over the past 3 weeks continues to manifest with documents from family and conversation with mother which Kimberly gave permission to occur. 6. Filed for 21-day hold and patient placed on hold at [facility] on 04/08/2023. Involuntary Hold Information 96 Hour Hold: 96 Hour Involuntary Admission: Yes 96 Hour Hold Ending Date: 04/07/23 96 Hour Hold Ending Time: 08:15 Attestations NPU Medical Necessity Statement*: Inpatient hospitalization is medically necessary and the clinically appropriate intervention, at this time. We will monitor medications and make changes as indicated. Likely length of stay is three to five days. Coding Level of Care Code Acute Code for Chg Fwd Diagnoses Psychosis F29
[2023-04-09 20:19] VITALS: BP 123/81; PULSE 82; RESP 18; TEMP 36.7; O2SAT 97
[2023-04-09] MEDS: quetiapine 25 mg Tablet PO (21:27)
[2023-04-10 06:00] VITALS: BP 109/48; PULSE 75; RESP 17; TEMP 36.8; O2SAT 98
[2023-04-10] MEDS: gabapentin 100 mg Capsule PO ×2 (09:03→17:20)
[2023-04-10] MEDS: paliperidone ER 6 mg Tablet PO (09:03)
[2023-04-10] MEDS: atomoxetine 40 mg Capsule PO (09:03)
[2023-04-10] MEDS: lamoTRIgine 100 mg Tablet PO (09:03)
[2023-04-10] MEDS: famotidine 20 mg Tablet PO ×2 (09:03→17:20)
[2023-04-10] MEDS: loratadine 10 mg Tablet PO (09:03)
[2023-04-10] MEDS: polyethylene glycol 3350 Pkt 17 gm PO (13:09)
--- NOTE | 2023-04-10 13:50 | P.NPUPN_ITS ---
Subjective NPU Subjective: Patient presents today reporting that she is tolerating the medication. She denies any side effects or any problems. We continue to discuss our desire to get her started on the long-acting injectable and she reports that she will consider it. She continues to be frustrated at the prospect of being here longer and missing possible appointments next week. We endorsed taking it 1 day at a time. Mental Status Exam MSE Comments: This is an underweight white female, in hospital scrubs, with appropriate grooming and eye contact. No abnormal movements. Cooperative with exam in mild to extreme distress. Speech was normal rate and volume. Mood described as okay, still want to get out sooner; affect congruent. Thought process, organized. Thought content: patient denied any suicidal or homicidal ideation, she is finally acknowledging some of the delusions he has reported and continued parano ia, hyperreligious or persecutory delusions noted, patient denied any auditory or visual hallucinations. Attention and concentration appeared intact, and memory appeared mostly reliable concerns about delusions impacting her reporting, but none were formally tested. Alert and oriented times three. I nsight and judgment are limited versus impaired. Impulse control is limited versus impaired. Vitals/I&O/Wt Last Vital Signs Temp 98.3 F 04/10/23 06:00 Pulse 75 04/10/23 06:00 Resp 17 04/10/23 06:00 BP 109/48 04/10/23 06:00 Pulse Ox 98 04/10/23 06:00 O2 Del Method Room Air 04/10/23 06:00 Data NPU 04/07/23 20:03 04/07/23 20:03 A&P Assessment and plan (1) Psychosis: Plan This is a 33 -year-old, white female, history of mental health issues that she is somewhat guarded in revealing who presents after being placed on a 96-hour hold secondary to concerns for paranoia, psychosis and/or alexy. 1.? Continue current medication. Started Invega 3 mg p.o. daily. Increased to 04/06/2023 6 mg. We will consider long-acting injectable. We discussed starting the injection today. 2.? Encourage individual, group, and milieu therapy. 3.? Continue q-15-minute checks for safety. 4.? Recommend sober living treatment at the highest level of care to which the patient is willing to commit. 5. Get collateral information given her subtlety and her psychosis as well as concerns she is avoiding being totally honest secondary to insight into the implication of her reports of the world ending etc. some collateral information obtained suggestive of clear demarcation suggestive of psychotic break in the last month. Had family meeting with aunt who was supportive of our position that she needed more time patient initially lobby for discharge and was quite resistant. Eventually in the conversation afterwards she was able to collaborate with this food writer on a plan for a longer stay with the goal of avoiding her missing an appointment on 04/14/2023. She went back on this con versation and endorsed a plan to fight with everything she has to get out of the hospital today even though we discussed believing that she was not ready. Continued information about the significant psychosis and disorganization over the past 3 weeks continues to manifest with documents from family and conversation with mother which Kimberly gave permission to occur. 6. Filed for 21-day hold and patient placed on hold at [facility] on 04/08/2023. Involuntary Hold Information 96 Hour Hold: 96 Hour Involuntary Admission: Yes 96 Hour Hold Ending Date: 04/07/23 96 Hour Hold Ending Time: 08:15 Attestations NPU Medical Necessity Statement*: Inpatient hospitalization is medically necessary and the clinically appropriate intervention, at this time. We will monitor medications and make changes as indicated. Likely length of stay is three to five days. Coding Level of Care Code Acute Code for Chg Fwd Diagnoses Psychosis F29
[2023-04-10 14:00] VITALS: BP 115/73; PULSE 83; RESP 20; TEMP 36.8; O2SAT 98
[2023-04-10] MEDS: docusate sodium 100 mg Capsule PO (16:08)
[2023-04-10] MEDS: magnesium hydroxide 30 mL UDC PO (17:33)
[2023-04-10 20:26] VITALS: BP 122/83; PULSE 98; RESP 16; TEMP 37.2; O2SAT 97
[2023-04-10] MEDS: quetiapine 25 mg Tablet PO (21:45)
[2023-04-10] MEDS: bisacodyl 10 mg Supp PR (21:45)
--- NOTE | 2023-04-10 22:17 | PC.NURSE ---
Pt is agitated remains fixated on BM, has had a small round hard BM thus far. Walked up to the nurses station w/o a top on, only in a sports bra. Pt reminded of unit rules that she must be dressed when she exits her room. Spoke w/pt regarding all of the bowel medicine she has already received w/in the last shift in half, pt is crying and stating we have to do something. Ordered fleets per her request, awaiting pharmacy delivery.
[2023-04-10] MEDS: Fleet Enema 133 mL Enema PR (23:11)
[2023-04-11 06:00] VITALS: BP 111/70; PULSE 94; RESP 16; O2SAT 97
[2023-04-11] MEDS: lamoTRIgine 100 mg Tablet PO (09:25)
[2023-04-11] MEDS: famotidine 20 mg Tablet PO ×2 (09:25→17:10)
[2023-04-11] MEDS: atomoxetine 40 mg Capsule PO (09:25)
[2023-04-11] MEDS: paliperidone ER 6 mg Tablet PO (09:25)
[2023-04-11] MEDS: loratadine 10 mg Tablet PO (09:25)
[2023-04-11] MEDS: gabapentin 100 mg Capsule PO ×2 (09:25→17:10)
[2023-04-11 13:36] VITALS: BP 109/66; PULSE 91; RESP 18; TEMP 36.9; O2SAT 98
[2023-04-11] MEDS: docusate sodium 100 mg Capsule PO (15:07)
--- NOTE | 2023-04-11 18:28 | P.NPUPN_ITS ---
Subjective NPU Subjective: Patient presented today reporting that she is feeling like she is doing better. We continue the conversation around the long-acting injectable and continue to discuss a plan for her to meet Dr. Wang on Thursday and there being a evaluation for whether she needs further time here. We discussed the fact that the injection would give us much more confidence that she is going to be safe after discharge. She denies any side effects of the medications is continuing to be somatically preoccupied most recently with her need for defecation. Mental Status Exam MSE Comments: This is an underweight white female, in hospital scrubs, with appropriate grooming and eye contact. No abnormal movements. Cooperative with exam in mild to extreme distress. Speech was normal rate and volume. Mood described as okay, still want to get out sooner; affect congruent. Thought process, organized. Thought content: patient denied any suicidal or homicidal ideation, she is acknowledging some of the delusions he has reported and continued paranoia, hyperreligious or persecutory delusions noted, patient denied any auditory or visual hallucinations. Attention and concentration appeared intact, and memory appeared mostly reliable concerns about delusions impacting her reporting, but none were formally tested. Alert and oriented times three. Insight and judgment are limited versus impaired. Impulse control is limited versus impaired. Vitals/I&O/Wt Last Vital Signs Temp 98.7 F 04/11/23 20:38 Pulse 105 H 04/11/23 20:38 Resp 16 04/11/23 20:38 BP 127/86 04/11/23 20:38 Pulse Ox 98 04/11/23 20:38 O2 Del Method Room Air 04/11/23 20:38 Weight last 48 hrs Weight 58.513 kg Data NPU 04/07/23 20:03 04/07/23 20:03 A&P Assessment and plan (1) Psychosis: Plan This is a 33 -year-old, white female, history of mental health issues that she is somewhat guarded in revealing who presents after being placed on a 96-hour hold secondary to concerns for paranoia, psychosis and/or alexy. 1.? Continue current medication. Started Invega 3 mg p.o. daily. Increased to 04/06/2023 6 mg. We will consider long-acting injectable. We discussed starting the injection today. 2.? Encourage individual, group, and milieu therapy. 3.? Continue q-15-minute checks for safety. 4.? Recommend sober living treatment at the highest level of care to which the patient is willing to commit. 5. Get collateral information given her subtlety and her psychosis as well as concerns she is avoiding being totally honest secondary to insight into the implication of her reports of the world ending etc. some collateral information obtained suggestive of clear demarcation suggestive of psychotic break in the last month. Had family meeting with aunt who was supportive of our position that she needed more time patient initially lobby for discharge and was quite resistant. Eventually in the conversation afterwards she was able to collaborate with this financial writer on a plan for a longer stay with the goal of avoiding her missing an appointment on 04/14/2023. She went back on this conversation and endorsed a plan to fight with everything she has to get out of the hospital today even though we discussed believing that she was not ready. Continued information about the significant psychosis and disorganization over the past 3 weeks continues to manifest with documents from family and conversation with mother which Kimberly gave permission to occur. 6. Filed for 21-day hold and patient placed on hold at hearing on 04/08/2023. Involuntary Hold Information 96 Hour Hold: 96 Hour Involuntary Admission: Yes 96 Hour Hold Ending Date: 04/07/23 96 Hour Hold Ending Time: 08:15 Attestations NPU Medical Necessity Statement*: Inpatient hospitalization is medically necessary and the clinically appropriate intervention, at this time. We will monitor medications and make changes as indicated. Likely length of stay is 3 to 5 days. Coding Level of Care Code Acute Code for [facility] Fwd Diagnoses Psychosis F29
--- NOTE | 2023-04-11 20:33 | PC.NURSE ---
ASSESSMENT COMPLETED IN ROOM. PT DENIES PAIN, DENIES SI/HI AND AVH AT THIS TIME. PT IS EAGER TO DISCHARGE. PT REPORTS VERY LARGE BMS LAST NIGHT AFTER ENEMA WAS RECEIVED. ALL QUESTIONS ANSWERED AND SUPPORT WAS VOICED.
[2023-04-11 20:38] VITALS: BP 127/86; PULSE 105; RESP 16; TEMP 37.1; O2SAT 98
[2023-04-11] MEDS: quetiapine 25 mg Tablet PO (21:51)
[2023-04-12 06:00] VITALS: RESP 16
--- NOTE | 2023-04-12 07:21 | W.PM.NPUPNS ---
Subjective NPU Subjective: Patient presented today continuing to struggle with the fact that she needs to stay and does not get a chance to be outside more. We continue to discuss the improvement we see with the Invega and that we would be more supportive of discharge planning with long-acting injectable and play. Family has begun to visit more and are also supportive of any decisions we can make to solidify her adherence. We discussed the family going her better and also still having concerns about her psychosis. She denied any side effects of the medication and we discussed the new doctor coming tomorrow to take over care. Mental Status Exam MSE Comments: This is an underweight white female, in hospital scrubs, with appropriate grooming and eye contact. No abnormal movements. Cooperative with exam in mild to moderate distress. Speech was normal rate and volume. Mood described as okay, still want to get out sooner; affect congruent. Thought process, organized. Thought content: patient denied any suicidal or homicidal ideation, she is acknowledging some of the delusions he has reported and continued paranoia, hyperreligious or persecutory delusions noted, patient denied any auditory or visual hallucinations. Attention and concentration appeared intact, and memory appeared mostly reliable concerns about delusions impacting her reporting, but none were formally tested. Alert and oriented times three. Insight and judgment are limited versus impaired. Impulse control is limited versus impaired. Vitals/I&O/Wt Last Vital Signs Temp 98.7 F 04/11/23 20:38 Pulse 105 H 04/11/23 20:38 Resp 16 04/12/23 06:00 BP 127/86 04/11/23 20:38 Pulse Ox 98 04/11/23 20:38 O2 Del Method Room Air 04/11/23 20:38 Weight last 48 hrs Weight 58.513 kg Data NPU 04/07/23 20:03 04/07/23 20:03 A&P Assessment and plan (1) Psychosis: Plan This is a 33 -year-old, white female, history of mental health issues that she is somewhat guarded in revealing who presents after being placed on a 96-hour hold secondary to concerns for paranoia, psychosis and/or alexy. 1.? Continue current medication. Started Invega 3 mg p.o. daily. Increased to 04/06/2023 6 mg. We will consider long-acting injectable. We discussed starting the injection. 2.? Encourage individual, group, and milieu therapy. 3.? Continue q-15-minute checks for safety. 4.? Recommend sober living treatment at the highest level of care to which the patient is willing to commit. 5. Get collateral information given her subtlety and her psychosis as well as concerns she is avoiding being totally honest secondary to insight into the implication of her reports of the world ending etc. some collateral information obtained suggestive of clear demarcation suggestive of psychotic break in the last month. Had family meeting with aunt who was supportive of our position that she needed more time patient initially lobby for discharge and was quite resistant. Eventually in the conversation afterwards she was able to collaborate with this keno writer on a plan for a longer stay with the goal of avoiding her missing an appointment on 04/14/2023. She went back on this conversation and endorsed a plan to fight with everything she has to get out of the hospital today even though we discussed believing that she was not ready. Continued information about the significant psychosis and disorganization over the past 3 weeks continues to manifest with documents from family and conversation with mother which Kimberly gave permission to occur. 6. Filed for 21-day hold and patient placed on hold at [facility] on 04/08/2023. Involuntary Hold Information 96 Hour Hold: 96 Hour Involuntary Admission: Yes 96 Hour Hold Ending Date: 04/07/23 96 Hour Hold Ending Time: 08:15 Attestations NPU Medical Necessity Statement*: Inpatient hospitalization is medically necessary and the clinically appropriate intervention, at this time. We will monitor medications and make changes as indicated. Likely length of stay is 3 to 5 days. Coding Level of Care Code Acute Code for Chg Fwd Diagnoses Psychosis F29
[2023-04-12] MEDS: famotidine 20 mg Tablet PO ×2 (09:02→17:01)
[2023-04-12] MEDS: gabapentin 100 mg Capsule PO ×2 (09:02→17:01)
[2023-04-12] MEDS: loratadine 10 mg Tablet PO (09:02)
[2023-04-12] MEDS: paliperidone ER 6 mg Tablet PO (09:02)
[2023-04-12] MEDS: lamoTRIgine 100 mg Tablet PO (09:02)
[2023-04-12] MEDS: atomoxetine 40 mg Capsule PO (09:02)
[2023-04-12] MEDS: psyllium powder Pkt 1 PACKET PO (13:50)
[2023-04-12 14:00] VITALS: BP 103/61; PULSE 90; RESP 16; TEMP 36.6; O2SAT 99
--- NOTE | 2023-04-12 16:17 | PC.NURSE ---
Staff unable to take patient outside in courtyard at this time and patient became angry. Patient also making statements such as, I'm gonna go get some snacks. If they even have any, although staff has kept snacks available all day. However, patient then became jovial and started handing bookmarks out to staff and patients.
[2023-04-12] MEDS: quetiapine 25 mg Tablet PO (20:18)
--- NOTE | 2023-04-12 20:51 | PC.NURSE ---
PT VOICES CONCERNS AND IS UPSET THAT SHE WAS NOT ALLOWED OUTSIDE AND YOUR [employer] WOULD NOT DO ANY GROUPS AND WOULD'NT EVEN COME OUT OF THE NURSES STATION TO WATCH US COLOR WITH COLORED PENCILS. PT STATES I WAS NOT ALLOWED TO WALK DOWN THE [place] AND IT PISSES ME OFF. PT WAS ASSURED THAT SHE CAN WALK DOWN THE [place] NOW AND IF SHE WOULD LIKE TO DRAW OF COLOR ONE OF THE PORTABLE [employer] CAN COME OUT. PT STATES SHE DOES NOT WANT TO DO ANY OF THAT NOW, I WANTED TO DO IT THIS AFTERNOON. RN LISTENED TO PT ACTIVELY AND SUPPORT WAS VOICED. PT STATES I FEEL LIKE A PRISONER. PT WAS REASSURED SHE IS NOT A PRISONER. PT THEN STATED WE COULD NOT EVEN GET ANY SNACKS TODAY. PT WAS OFFERED A DRINK AND SNACK AND WAS REASSURED THERE ARE PLENTY OF SNACKS ON THE UNIT AND SHE CAN HAVE WHATEVER IT IS SHE NEEDS. PT RAISED UP AN APPLE AND KG AND STATES I HAVE SOMETHING NOW BUT I HAD TO WAIT FOR YOU GUYS TO COME IN TO GET IT. PT DENIES SI/HI AND AVH AT THIS TIME. DENIES PAIN. REPORTS BM THIS AM. METAMUCIL WAS STARTED THIS AM AND PT IS PLEASED THAT IS WORKING. PT WAS ENCOURAGED TO INCREASE ACTIVITY AND WATER INTAKE TO ASSIST HER WITH CONSTIPATION ISSUES. PT DID CALM DOWN AFTER SPEAKING TO RN. STATES OK I'M DONE GRIPPING. PT WAS INFORMED THAT SHE CAN SPEAK FREELY ANYTIME THAT STAFF IS HERE TO LISTEN. PT WENT BACK TO EATING AND WATCHING TV.
[2023-04-12 20:58] VITALS: BP 126/78; PULSE 63; RESP 18; O2SAT 98
[2023-04-13 06:00] VITALS: BP 104/65; PULSE 89; RESP 17; O2SAT 97
[2023-04-13] MEDS: gabapentin 100 mg Capsule PO (08:45)
[2023-04-13] MEDS: atomoxetine 40 mg Capsule PO (08:45)
[2023-04-13] MEDS: paliperidone ER 6 mg Tablet PO (08:45)
[2023-04-13] MEDS: famotidine 20 mg Tablet PO ×2 (08:45→20:09)
[2023-04-13] MEDS: lamoTRIgine 100 mg Tablet PO (08:45)
[2023-04-13] MEDS: loratadine 10 mg Tablet PO (08:45)
[2023-04-13] MEDS: psyllium powder Pkt 1 PACKET PO (08:46)
[2023-04-13] MEDS: hyDROXYzine 25 mg Capsule 50 MG PO (13:32)
--- NOTE | 2023-04-13 13:34 | PC.NURSE ---
Patient crying and shaking. Patient states that she is upset because the doctor is changing her meds which means she will have to stay here longer. Patient requested something for anxiety. This nurse administered 50mg Vistaril PO to patient. Will continue to watch patient closely.
[2023-04-13 14:00] VITALS: BP 107/64; PULSE 88; RESP 15; TEMP 36.8; O2SAT 100
[2023-04-13] MEDS: OLANZapine 5 mg ODT PO (15:15)
--- NOTE | 2023-04-13 15:42 | W.PM.NPUPNS ---
Subjective NPU Subjective: The patient is a 33-year-old white female who presented with a history of bipolar disorder. She had reported a past history of mixed manic symptoms with decreased need for sleep. She had reported improved mood with her current medication regimen. She reported that she had felt that there was many things wrong with her and stated that she had been missing a cardiology appointment because she was here in the hospital. She had acknowledged having been hospitalized before and admitted to having engaged in some unusual behavior in the past leading to inpatient psychiatric hospitalization in [place] for bipolar disorder. She had reported feeling excessively sedated on Seroquel in the past. The patient had endorsed having periods of racing thoughts and rapid cycling of moods in the past. She reported no prior trial on Depakote but stated that lithium had affected her kidneys negatively. She endorsed no suicidal thoughts currently. Mental Status Exam MSE Comments: This is an underweight white female, in hospital scrubs, with appropriate grooming and eye contact. No abnormal movements. She was cooperative with exam in mild distress. Speech was normal in rate and volume. Mood described as okay. Her affect appeared labile. Her thought process was organized. Thought content: patient denied any suicidal or homicidal ideation, she is acknowledging some of the delusions he has reported and continued paranoia, hyperreligious or persecutory delusions noted, patient denied any auditory or visual hallucinations. Attention and concentration appeared intact, and memory appeared mostly reliable concerns about delusions impacting her reporting, but none were formally tested. Alert and oriented times three. Insight and judgment are limited versus impaired. Impulse control is limited versus impaired. Vitals/I&O/Wt Last Vital Signs Temp 98.2 F 04/13/23 14:00 Pulse 88 04/13/23 14:00 Resp 15 04/13/23 14:00 BP 107/64 04/13/23 14:00 Pulse Ox 100 04/13/23 14:00 O2 Del Method Room Air 04/13/23 06:00 Weight last 48 hrs Weight 58.513 kg Data NPU 04/07/23 20:03 04/07/23 20:03 A&P Assessment and plan (1) Psychosis: Plan This is a 33 -year-old, white female, history of mental health issues that she is somewhat guarded in revealing who presents after being placed on a 96-hour hold secondary to concerns for paranoia, psychosis and/or alexy. 1.? Continue current medication. Continue Invega 6 mg daily. We will consider long-acting injectable. We discussed starting the injection. 2.? Encourage individual, group, and milieu therapy. 3.? Continue q-15-minute checks for safety. 4.? Recommend sober living treatment at the highest level of care to which the patient is willing to commit. 5. Continue Lamotrigine 100mg daily. 6. Filed for 21-day hold and patient placed on hold at [facility] on 04/08/2023. Involuntary Hold Information 96 Hour Hold: 96 Hour Involuntary Admission: Yes 96 Hour Hold Ending Date: 04/07/23 96 Hour Hold Ending Time: 08:15 Attestations NPU Medical Necessity Statement*: Inpatient hospitalization is medically necessary and the clinically appropriate intervention, at this time. We will monitor medications and make changes as indicated. Likely length of stay is 5-7 days. Coding Level of Care Code Acute Code for [facility] Fwd Diagnoses Psychosis F29
[2023-04-13] MEDS: quetiapine 25 mg Tablet PO (20:09)
[2023-04-13] MEDS: gabapentin 300 mg Capsule PO (20:11)
[2023-04-13] MEDS: docusate sodium 100 mg Capsule PO (20:51)
[2023-04-13 21:03] VITALS: BP 121/75; PULSE 88; RESP 18; TEMP 36.8; O2SAT 98
[2023-04-14 06:00] VITALS: BP 99/63; PULSE 87; RESP 18; O2SAT 97
[2023-04-14] MEDS: lamoTRIgine 100 mg Tablet PO (08:49)
[2023-04-14] MEDS: loratadine 10 mg Tablet PO (08:49)
[2023-04-14] MEDS: paliperidone ER 6 mg Tablet PO (08:49)
[2023-04-14] MEDS: famotidine 20 mg Tablet PO ×2 (08:49→17:13)
[2023-04-14] MEDS: atomoxetine 40 mg Capsule PO (08:49)
[2023-04-14] MEDS: gabapentin 300 mg Capsule PO ×2 (08:49→17:13)
[2023-04-14] MEDS: psyllium powder Pkt 1 PACKET PO (08:52)
[2023-04-14] MEDS: OLANZapine 5 mg ODT PO (12:20)
[2023-04-14 14:00] VITALS: BP 106/66; PULSE 79; RESP 16; O2SAT 96
--- NOTE | 2023-04-14 16:20 | P.NPUPN_ITS ---
Subjective NPU Subjective: The patient is a 33-year-old white female who presented with a history of bipolar disorder and ADHD. Patient had reported that she was feeling better. She had reported no depressed mood. She had reported that her irritability and agitation at improved since starting the Invega. She had reported no alcohol use in over 2 years. She had reported that she had continued problems with staying on task and states that she had continued to remain disorganized and unable to focus despite being on Strattera. She had reported that higher dose of Strattera had been concerning to her treatment team as it may have made her more manic. The patient reported some difficulties with sleep continuity disruption. Patient was provided additional information regarding general suggestions for managing bipolar disorder including the need to remain compliant and consistent with her medications. She had endorsed a past history of decreased need for sleep but states that her sleep was better recently. Mental Status Exam MSE Comments: This is an underweight white female, in hospital scrubs, with appropriate grooming and eye contact. No abnormal movements. She was cooperative with exam in mild distress. Speech was normal in rate and volume. Mood described as better. Her affect appeared euthymic. Her thought process was organized. Thought content: patient denied any suicidal or homicidal ideation. she did not appear to be responding to internal stimuli and there was no clear evidence of delusional thinking today. Patient denied any auditory or visual hallucinations. Attention was variable and concentration appeared intact, and memory appeared grossly intact but none were formally tested. Alert and oriented times three. Insight was improving and judgment is guarded. Impulse control appeared to be improving. Vitals/I&O/Wt Last Vital Signs Temp 98.3 F 04/13/23 21:03 Pulse 79 04/14/23 14:00 Resp 16 04/14/23 14:00 BP 106/66 04/14/23 14:00 Pulse Ox 96 04/14/23 14:00 O2 Del Method Room Air 04/14/23 14:00 Data NPU 04/07/23 20:03 04/07/23 20:03 A&P Assessment and plan (1) Bipolar affective, mixed, unspec: (2) ADHD (attention deficit hyperactivity disorder), combined type: (3) Psychosis: Plan This is a 33 -year-old, white female, history of mental health issues that she is somewhat guarded in revealing who presents after being placed on a 96-hour hold secondary to concerns for paranoia, psychosis and/or alexy. 1.? Continue current medication. Continue Invega 6 mg daily. 2.? Encourage individual, group, and milieu therapy. 3.? Continue q-15-minute checks for safety. 4.? Recommend sober living treatment at the highest level of care to which the patient is willing to commit. 5. Continue Lamotrigine 100mg daily. Decrease Strattera 25mg daily with plan to discontinue this medication due to lack of effectiveness and manic symptoms reported at higher dose. 6. Filed for 21-day hold and patient placed on hold at [facility] on 04/08/2023. Involuntary Hold Information 96 Hour Hold: 96 Hour Involuntary Admission: Yes 96 Hour Hold Ending Date: 04/07/23 96 Hour Hold Ending Time: 08:15 Attestations NPU Medical Necessity Statement*: Inpatient hospitalization is medically necessary and the clinically appropriate intervention, at this time. We will monitor medications and make changes as i ndicated. Likely length of stay is 3-5 days. Coding Level of Care Code Acute Code for Chg Fwd Diagnoses Bipolar affective, mixed, unspec F31.60 ADHD (attention deficit hyperactivity disorder), combined type F90.2 Psychosis F29
[2023-04-14] MEDS: quetiapine 25 mg Tablet PO (20:13)
[2023-04-14] MEDS: trazodone 50 mg Tablet PO (20:14)
[2023-04-14 22:00] VITALS: BP 116/77; PULSE 80; RESP 18; TEMP 37.2; O2SAT 97
[2023-04-15 06:00] VITALS: BP 97/56; PULSE 72; RESP 16; O2SAT 95
[2023-04-15] MEDS: famotidine 20 mg Tablet PO ×2 (08:55→18:02)
[2023-04-15] MEDS: psyllium powder Pkt 1 PACKET PO (08:55)
[2023-04-15] MEDS: lamoTRIgine 100 mg Tablet PO (08:55)
[2023-04-15] MEDS: loratadine 10 mg Tablet PO (08:55)
[2023-04-15] MEDS: paliperidone ER 6 mg Tablet PO (08:55)
[2023-04-15] MEDS: gabapentin 300 mg Capsule PO ×3 (08:55→20:47)
[2023-04-15 14:00] VITALS: BP 115/68; PULSE 79; RESP 16; TEMP 36.6; O2SAT 100
--- NOTE | 2023-04-15 14:49 | P.NPUPN_ITS ---
Subjective NPU Subjective: The patient is a 33-year-old white female who presented with a history of bipolar disorder and ADHD. Patient had reported decreased irritability. She had reported that her thoughts were no longer racing. She had been redirectable and more polite on the unit. She had no episodes of agitation. She had reported less problems with falling asleep and less frequent awakenings at night. She had continue to report having significant anxiety. She had also reported having chronic problems with attention and concentration. She had reported having some problems with inflammation and stated that she was scheduled to see shipping team leader soon. She had reported no particular side effects from the Invega oral. She had denied any depressed mood at this time. Mental Status Exam MSE Comments: This is an underweight white female, in hospital scrubs, with appropriate grooming and eye contact. No abnormal movements. She was cooperative with exam in no acute distress. Speech was normal in rate and volume. Mood described as good. Her affect appeared euthymic. Her thought process was organized. Thought content: patient denied any suicidal or homicidal ideation. She did not appear to be responding to internal stimuli and there was no clear evidence of delusional thinking. Patient denied any auditory or visual hallucinations. Attention was poor. Her memory appeared grossly intact. He was alert and oriented times three. Insight was improving and judgment is guarded. Impulse control appeared to be improving. Vitals/I&O/Wt Last Vital Signs Temp 98 F 04/15/23 14:00 Pulse 79 04/15/23 14:00 Resp 16 04/15/23 14:00 BP 115/68 04/15/23 14:00 Pulse Ox 100 04/15/23 14:00 O2 Del Method Room Air 04/15/23 14:00 Data NPU 04/07/23 20:03 04/07/23 20:03 A&P Assessment and plan (1) Bipolar affective, mixed, unspec: (2) ADHD (attention deficit hyperactivity disorder), combined type: (3) Psychosis: Plan This is a 33 -year-old, white female, history of mental health issues that she is somewhat guarded in revealing who presents after being placed on a 96-hour hold secondary to concerns for paranoia, psychosis and/or alexy. 1.? Continue current medication. Continue Invega 6 mg daily. 2.? Encourage individual, group, and milieu therapy. 3.? Continue q-15-minute checks for safety. 4.? Recommend sober living treatment at the highest level of care to which the patient is willing to commit. 5. Continue Lamotrigine 100mg daily. D/C strattera. D/C Seroquel and increase gabapentin to target anxiety 300mg tid. 6. Filed for 21-day hold and patient placed on hold at [facility] on 04/08/2023. Involuntary Hold Information 96 Hour Hold: 96 Hour Involuntary Admission: Yes 96 Hour Hold Ending Date: 04/07/23 96 Hour Hold Ending Time: 08:15 Attestations NPU Medical Necessity Statement*: Inpatient hospitalization is medically necessary and the clinically appropriate intervention, at this time. We will monitor medications and make changes as indicated. Likely length of stay is 1-2 days. Coding Level of Care Code Acute Code for Chg Fwd Diagnoses Bipolar affective, mixed, unspec F31.60 ADHD (attention deficit hyperactivity disorder), combined type F90.2 Psychosis F29
[2023-04-15] MEDS: docusate sodium 100 mg Capsule PO (17:07)
[2023-04-15 20:02] VITALS: BP 128/86; PULSE 81; RESP 16; TEMP 36.9; O2SAT 99
[2023-04-15] MEDS: trazodone 50 mg Tablet PO ×2 (20:47→21:58)
[2023-04-16 06:00] VITALS: BP 133/88; PULSE 115; RESP 18; TEMP 36.9; O2SAT 96
[2023-04-16] MEDS: lamoTRIgine 100 mg Tablet PO (08:32)
[2023-04-16] MEDS: loratadine 10 mg Tablet PO (08:32)
[2023-04-16] MEDS: paliperidone ER 6 mg Tablet PO (08:32)
[2023-04-16] MEDS: famotidine 20 mg Tablet PO (08:32)
[2023-04-16] MEDS: gabapentin 300 mg Capsule PO (08:33)
[2023-04-16] MEDS: psyllium powder Pkt 1 PACKET PO (09:22)
[2023-04-16 13:32] VITALS: BP 120/71; PULSE 87; RESP 16; TEMP 36.9; O2SAT 97
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
[2023-04-16 14:06] VITALS: BP 120/71; PULSE 87; RESP 16; TEMP 36.9; O2SAT 97
--- NOTE | 2023-04-16 15:20 | PC.NURSE ---
written discharge instruction discussed and left with patient. pt given RX prescription medication delivered by [facility] pharmacy. pt stated understanding and complaince.
== END 2023-04-16 15:22 | disposition home or self-care (01) | DRG 885 ==
LOC: ER 08:21 → NP 08:50
PROVIDERS: Admitting Provider Psychiatry & Neurology Psychiatry; Emergency Provider Family Medicine; Visit Provider Psychiatry & Neurology Psychiatry
DX: F22 Delusional disorders (principal); F31.60 Bipolar disorder, current episode mixed, unspecified; F17.210 Nicotine dependence, cigarettes, uncomplicated; Z81.1 Family history of alcohol abuse and dependence; Z81.8 Family history of other mental and behavioral disorders; F90.2 Attention-deficit hyperactivity disorder, combined type
CPT/HCPCS: 36415; 36416; 80053; 80306; 80307; 81003; 82962; 84443; 84703; 85025; 93005; 97150; 97165; 99238; 99285; Q0163